=== PATIENT | female | born 1970 | race Caucasian/White ===

== ENCOUNTER 2017-02-04 00:06 | Inpatient (IN) | payer OTHER ==
[2017-02-04] VITALS (7 sets, daily range): BP systolic 107–121; BP diastolic 62–91
[~2017-02-04] VITALS: Ht 152.4 cm; Wt 78.7 kg
--- NOTE | ~2017-02-04 | HC ---
[facility] [place] [address] CONSULTATION Name: JANELLE GARCIA MICHELL Room #: 204-P ADM IN M.R.#: [id number] Admission: 02/04/17 Attend Phys: Gale Tijerina Discharge: Date of : 74 Report #: [id number] THIS REPORT FOR: //name// CC: FAM unknown Gale Tijerina DATE OF SERVICE: 02/04/2017 CARDIOLOGY CONSULTATION HISTORY OF PRESENT ILLNESS: The patient is a 46-year-old white female with a history of a cardiomyopathy who was admitted last night complaining of shortness of breath. The patient has had multiple hospitalizations here at [facility]. She has chronic back pain and has gone to the pain clinic. She has been on chronic narcotics. She previously saw my partner, Dr. Jimmy Jean-Baptiste and was diagnosed with a cardiomyopathy in 2014 when she had an echocardiogram here at [facility]. This showed an ejection fraction of only 20% with a dilated left atrium. She previously had been on carvedilol, lisinopril and Lasix. She states she was actually admitted to [place] in 2016 and underwent a heart catheterization. Apparently, there was no significant coronary artery disease. She was told at that time, she needs a defibrillator, but she refused. Since that time, she lost her insurance and stopped taking all of her medications for the past several weeks. She now notes, however, she regained her Medicaid and Medicare card, but recently she has had increasing edema and shortness of breath. She notes abdominal swelling. Denied any fever or cough. She does note some chest tightness and increased heart rate, but no syncope recently. I was asked to see her for further evaluation and treatment. PAST MEDICAL HISTORY: Otherwise significant for up to 5 back surgeries. She has had multiple surgeries on her knee, hips and shoulder. She has had a cholecystectomy. She went through menopause about 5 years ago. She has a history of hypertension, diabetes and hyperlipidemia. MEDICATIONS: Her previous medications include Coreg, lisinopril, Lasix, Synthroid, Lipitor and oxycodone. ALLERGIES: SHE HAS MULTIPLE INTOLERANCES. FAMILY HISTORY: Positive for heart disease. SOCIAL HISTORY: She is . She does have 3 children. She currently lives with a friend in [place], [place]. No smoking or alcohol abuse. Does smoke marijuana occasionally. She is on disability. 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 REVIEW OF SYSTEMS: She has had no history of peptic ulcer disease or asthma. [facility] [address] [place] [address] CONSULTATION Name: JANELLE GARCIA Room #: 204-P [facility] IN ..#: [id number] Admission: 02/04/17 Attend Phys: Gale Tijerina Discharge: Date of : 74 Report #: [id number] She apparently had a TIA in the past. She had a kidney stone. She had thyroid cancer, received radiation therapy at [place]. No psychiatric illness. PHYSICAL EXAMINATION: GENERAL: Revealed a middle-aged female lying in bed. She appeared in no acute distress. VITAL SIGNS: She had a blood pressure of 110/80, pulse is 80 and she is afebrile. HEENT: She was anicteric. Conjunctivae are pink. Mucous membranes are moist. NECK: Veins do not appear distended. No carotid bruits. CHEST: Clear to auscultation. CARDIAC: Regular rate and rhythm. ABDOMEN: Soft and nontender. EXTREMITIES: Had 1+ edema up to the knee. Dorsalis pedis pulse cannot be palpated. SKIN: Cool and dry. NEUROLOGICAL: Nonfocal. DIAGNOSTIC DATA: Her ECG shows sinus rhythm with poor R-wave progression, nonspecific ST-segment changes. Her workup in the Emergency Room last night, she had a chest x-ray that showed cardiomegaly, atelectasis and no pulmonary edema. Venous duplex scan of the leg done this morning because of the edema showed no evidence of DVT. Previous CT scan of the head without contrast back in 2013 showed no acute abnormality. LABORATORY DATA: Her lab work done last night: Sodium 139, potassium 4.1, BUN was 24, creatinine 1.3 and glucose 134. SGOT 1596, bilirubin 1.1, alkaline phosphatase 211 and SGPT 946. Her troponin was 0.2. Cholesterol 170, triglyceride 124, HDL 55 and LDL 91. BNP 7532. Her INR was 1.9. Her white blood cell count 8.4, hemoglobin 10.5 and MCV 103. IMPRESSION AND RECOMMENDATIONS: 1. Pqrqj-oo-lpghoyp systolic heart failure. Recommend IV Lasix. 2. Cardiomyopathy. I would recommend resuming Coreg, lisinopril, spironolactone and Lasix. 3. Hypertension. The patient is no longer on medications. 4. Hyperlipidemia. The patient is no longer on statin drug. 5. Diabetes. 6. History of thyroid cancer. 7. Elevated liver function studies. Recommend ultrasound. <ELECTRONICALLY SIGNED> By: Koko Arreola MD, FACC 02/05/17 1023 0917 1045 Koko Arreola MD, FACC /nt
--- NOTE | ~2017-02-04 | 2DMMODE ---
[facility] [address] [place] [address] 2 D/M-MODE ECHOCARDIOGRAM Name: JANELLE GARCIA [facility] Room #: 204-P ADM IN M.R.#: [id number] Admission: 02/04/17 Attend Phys: Gale Martinez Discharge: Date of : 74 Date of Service: 02/04/17 0934 Report #: [id number] THIS REPORT FOR: //name// APPROVED REPORT Study performed: 02/04/2017 08:12:22 EXAM: Comprehensive 2D, Doppler, and color-flow Echocardiogram Patient Location: Bedside Room #: 204 Status: routine BSA: 1.74 HR: 76 bpm BP: 114/85 mmHg Rhythm: Irregular Other Information Study Quality: Excellent Indications Heart failure, fluid overload. Hx: Nonischemic cardiomyopathy. CHF 2D Dimensions RVDd: 39.97 mm LVEF(%): 10.38 (>50%) IVSd: 9.44 (7-11mm) LVOT Diam: 20.49 (18-24mm) LVDd: 65.90 mm PWd: 11.36 (7-11mm) Ascending Ao: 33.90 (22-36mm) LVDs: 62.80 (25-40mm) Aortic Root: 29.40 mm Martinez's LVEF: 10.38 % Volumes Left Atrial Volume (Systole) Single Plane 4CH: 78.26 mL Single Plane 2CH: 93.26 mL LA ESV Index: 54.00 mL/m2 Aortic Valve AoV Peak Antwon.: 1.22 m/s AO Peak Gr.: 8.21 mmHg LVOT Max P.74 mmHg LVOT Max V: 0.82 m/s FLORY Vmax: 2.21 cm2 Mitral Valve MV Decel. Time: 126.14 ms [facility] [address] [place] [address] 2 D/M-MODE ECHOCARDIOGRAM Name: [facility] Room #: 204-P [facility] IN M.R.#: [id number] Admission: 02/04/17 Attend Phys: Gale Martinez Discharge: Date of : 74 Date of Service: 02/04/17 0934 Report #: [id number] Max Antwon.: 1.29 m/s Pulmonary Valve PV Peak Antwon.: 0.52 m/s PV Peak Gr.: 1.08 mmHg Pulmonary Vein P Vein S: 0.23 m/s P Vein D: 0.76 m/s P Vein S/D Ratio: 0.30 Tricuspid Valve TR Peak Antwon.: 2.30 m/s RAP Estimate: 5.00 mmHg TR Peak Gr.: 21.00 mmHg PA Pressure: 26.00 mmHg Left Ventricle Left ventricle is moderately dilated. There is global hypokinesis of the left ventricle. There is normal left ventricular wall thickness. Left ventricular systolic function is severely decreased. LVEF is 15-20%. This study is not technically sufficient to allow evaluation of the LV diastolic function. Right Ventricle The right ventricle is normal size. Right ventricle is moderate to severely hypokinetic. Atria Left atrium is severely dilated. Right atrium is mildly dilated. Aortic Valve Aortic valve is mildly calcified. Trace aortic regurgitation. There is no aortic valvular stenosis. Mitral Valve Mitral valve leaflets are mildly thickened. Mild mitral annular calcification. Moderate mitral regurgitation. Tricuspid Valve The tricuspid valve is normal in structure. Mild tricuspid regurgitation. Estimated PAP is 26mmHg. Pulmonic Valve The pulmonary valve is normal in structure. Mild pulmonic regurgitation. [facility] [address] [place] [address] 2 D/M-MODE ECHOCARDIOGRAM Name: JANELLE GARCIA MICHELL Room #: 204-P [facility] IN M.R.#: [id number] Admission: 02/04/17 Attend Phys: Gale Martinez Discharge: Date of : 74 Date of Service: 02/04/17 0934 Report #: [id number] Great Vessels The aortic root is normal in size. The ascending aorta is normal in size. IVC is normal in size and collapses >50% with inspiration. Pericardium There is no pericardial effusion. <Conclusion> LVEF is 15-20%. There is global hypokinesis of the left ventricle. Left ventricle is moderately dilated. Left atrium is severely dilated. Moderate mitral regurgitation. Mild tricuspid regurgitation. Estimated PAP is 26mmHg. <ELECTRONICALLY SIGNED> By: Koko Arreola MD, FACC 02/04/17933 3 3 Koko Arreola MD, FACC /INF
--- NOTE | ~2017-02-04 | EKG ---
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 : 1970 Requested By: Jadon Roche Order Number: [id number] MD: Alexis Torres Measurements Intervals [place] Rate: 80 P: 56 WI: 145 QRS: 18 QRSD: 119 T: 23 QT: 451 QTc: 521 Interpretive Statements Sinus rhythm Atrial premature complexes Anterior infarct, old Prolonged QT interval Compared to ECG 05/08/2015 21:28:27 Atrial premature complex(es) now present Electronically Signed On 02-04-2017 8:38:45 CDT by Alexis Torres [email or web address] <ELECTRONICALLY SIGNED> By: Alexis Torres MD, [facility] 02/04/17 0838 0020 0020 Alexis Torres MD, [facility] /EPI
[~2017-02-04 00:06] MED LIST: AMBIEN 5 MG TABL5 M1; AMLODIPINE PO; BACTRIM DS TAB1 EACH; CALCITRIOL PO; CALCIUM 600 +1 EAC1 PO; CARAFATE1 GM/10 ML; CATAPRES; CATAPRES PO; CATAPRES TD; CLARITIN10 MG PO; COREG CR20 MG PO; COREG3.125 MG PO; DIOVAN; DYAZIDE 37.5-21 EACH PO; HYDROCODONE-AP1 EAC6 PO; KLOR-CON 1010 MEQ PO; LASIX 20 MG TAB20 MG PO; LASIX 40 MG TAB40 M2 PO; LEVAQUIN 500 M500 M6 PO; LEVOTHYROXINE 0.1 MG PO; LEVOXYL200 MCG PO; LEVOXYL300 MCG; LEVOXYL75 MCG PO; LISINOPRIL10 MG PO; LISINOPRIL20 MG PO; LUNESTA1 MG PO; MACROBID 100 M100 M1 PO; MARINOL 2.5 MG2.5 M1 PO; MARINOL2.5 MG PO; NORCO 5-325 TA1 EACH PO; NORFLEX100 MG PO; OXYCODONE HCL 55 MG PO; OXYCODONE HCL E10 MG PO; OXYCODONE HCL10 MG PO; OXYCODONE HCL15 MG PO; OXYCODONE HCL5 M1 PO; OXYCONTIN CR 2020 MG PO; OXYCONTIN10 M1 PO; OXYCONTIN20 M1 PO; OXYCONTIN20 MG PO; OXYCONTIN60 MG PO; PERCOCET 10-321 EACH; PERCOCET 10-651 EACH PO; PERCOCET 5-3251 EACH PO; PRINIVIL20 MG PO; ROXICODONE15 M1 PO; ROXICODONE5 M2 PO; TOBRAMYCIN SULFA5 ML OP; VALIUM5 MG PO; ZANTAC150 M2 PO; ZOCOR20 MG PO
[2017-02-04] MEDS ORDERED: ROXICODONE5 MG PO (00:26)
[2017-02-04 00:41] LABS: HEMATOCRIT 31.7 % (37.0-47.0); HEMOGLOBIN 10.5 gm/dL (12.0-15.0); MCH 34.2 pg (26.0-34.0); MCV 103.4 fL (80.0-100.0); PLATELET COUNT 160 thou/uL (150-400); RBC 3.06 mil/uL (4.20-5.00); RDW 16.8 % (10.5-14.5); WBC 8.4 thou/uL (4.0-11.0)
[2017-02-04 00:44] LABS: MANUAL DIFF YES
[2017-02-04 00:49] LABS: CALCIUM 7.9 mg/dL (8.5-10.1); CREATININE 1.3 mg/dL (0.6-1.0); POTASSIUM 4.1 mmol/L (3.5-5.1)
[2017-02-04 00:54] LABS: APTT 29.9 Seconds (24.5-32.8); INR 1.9; PROTIME 19.5 Seconds (9.3-11.4)
[2017-02-04 01:03] LABS: ALBUMIN 3.6 g/dL (3.4-5.0); TOTAL BILIRUBIN 1.1 mg/dL (<0.1-1.0); TOTAL PROTEIN 7.1 g/dL (6.4-8.2); TROPONIN-I 0.22 ng/mL (<0.04-0.07)
[2017-02-04 01:07] LABS: URINE BILIRUBIN NEGATIVE (Negative); URINE BLOOD TRACE (Negative); URINE COLOR YELLOW; URINE GLUCOSE-RANDOM* NEGATIVE (Negative); URINE KETONES NEGATIVE (Negative); URINE LEUKOCYTES-REFLEX NEGATIVE (Negative); URINE PROTEIN (DIPSTICK) 2+ (Negative); URINE SPECIFIC GRAVITY >= 1.030 (1.003-1.035); URINE UROBILINOGEN 0.2 E.U./dl (0.2-1.0)
[2017-02-04 01:16] LABS: AMORPHOUS URATES Moderate /LPF (None Seen); CASTS None Seen /LPF (None Seen); CRYSTALS None Seen /LPF (None Seen); SQUAMOUS None Seen /LPF (0-3); URINE RBC 0-2 Rare /HPF (0-2); URINE WBC-REFLEX 0-5 Rare /HPF (0-5)
[2017-02-04 01:21] LABS: ABSOLUTE NEUTROPHILS 7.5 thou/uL (1.4-8.2); ANISOCYTOSIS 1+; LARGE PLATELETS FEW; MACROCYTES 1+; NUCLEATED RBCS 1 /100WBC; POLYCHROMASIA 1+; TOTAL CELL COUNT 100
[2017-02-04 07:42] LABS: CHOLESTEROL 170 mg/dL (<200); HDL CHOLESTEROL 55 mg/dL (>40); LDL CHOLESTEROL 91 mg/dL (<100); TC:HDL 3.1 Ratio (Not establshd); TRIGLYCERIDE 124 mg/dL (<150); VLDL 25 mg/dL (<40)
[2017-02-04 15:12] LABS: HEPATITIS C VIRUS AB <0.1 (0.0-0.9)
[2017-02-04 21:11] LABS: GLYCOHEMOGLOBIN (HGB A1C) 5.9 % (4.8-5.6)
[2017-02-05 03:13] VITALS: BP 110/75
[2017-02-05 04:02] LABS: HEMOGLOBIN 11.1 gm/dL (12.0-15.0); MCHC 33.6 g/dL (28.0-37.0); MCV 101.4 fL (80.0-100.0); RBC 3.25 mil/uL (4.20-5.00); RDW 16.3 % (10.5-14.5); WBC 6.3 thou/uL (4.0-11.0)
[2017-02-05 04:18] LABS: ALBUMIN 3.2 g/dL (3.4-5.0); CALCIUM 7.5 mg/dL (8.5-10.1); CREATININE 1.3 mg/dL (0.6-1.0); PHOSPHORUS 3.5 mg/dL (2.5-4.9); POTASSIUM 3.3 mmol/L (3.5-5.1)
[2017-02-05 04:26] LABS: ALBUMIN 3.1 g/dL (3.4-5.0); CALCIUM 7.5 mg/dL (8.5-10.1); CREATININE 1.3 mg/dL (0.6-1.0); MAGNESIUM 1.9 mg/dL (1.8-2.4); POTASSIUM 3.2 mmol/L (3.5-5.1); TOTAL BILIRUBIN 0.6 mg/dL (<0.1-1.0); TOTAL PROTEIN 7.2 g/dL (6.4-8.2)
[2017-02-05 07:13] VITALS: BP 105/78
[2017-02-05 10:58] VITALS: BP 115/76
[2017-02-05 15:06] VITALS: BP 99/63
[2017-02-06 03:17] VITALS: BP 96/77
[2017-02-06 03:27] LABS: INR 1.2; PROTIME 12.3 Seconds (9.3-11.4)
[2017-02-06 03:45] LABS: ALBUMIN 2.9 g/dL (3.4-5.0); CALCIUM 7.2 mg/dL (8.5-10.1); CREATININE 1.5 mg/dL (0.6-1.0); PHOSPHORUS 4.2 mg/dL (2.5-4.9); POTASSIUM 4.2 mmol/L (3.5-5.1)
[2017-02-06 07:06] VITALS: BP 94/64
[2017-02-06] MEDS ORDERED: CARVEDILOL3.125 MG PO (07:54)
[2017-02-06] MEDS ORDERED: ALDACTONE25 MG PO (07:55)
[2017-02-06] MEDS ORDERED: SYNTHROID75 MCG PO (07:55)
[2017-02-06] MEDS ORDERED: LISINOPRIL5 MG PO (07:55)
[2017-02-06] MEDS ORDERED: LASIX 40 MG TAB40 M2 PO (07:59)
[2017-02-06 10:58] VITALS: BP 102/78
[2017-02-06 15:12] VITALS: BP 100/70
[2017-02-06 19:44] VITALS: BP 104/74
[2017-02-07 04:05] VITALS: BP 97/74
[2017-02-07 08:00] VITALS: BP 93/59
[2017-02-07 10:25] VITALS: BP 93/59
[2017-02-07 10:53] VITALS: BP 93/59
[2017-02-07 12:00] VITALS: BP 116/83
== END 2017-02-07 15:30 | disposition home or self-care (01) | DRG 280 ==
LOC: ER 00:06 → 2N 01:48 → EROBS 01:48 → 2N 02:32 → ENTRNSPT 02-07 15:17 → EDTRNSPTSTS 02-07 15:20 → 2N 02-07 15:30
PROVIDERS: Emergency Medicine; Hospitalist; Internal Medicine Cardiovascular Disease; Nurse Practitioner Acute Care
DX: I21.4 Non-ST elevation (NSTEMI) myocardial infarction (principal); I50.43 Acute on chronic combined systolic (congestive) and diastolic (congestive) heart failure; I42.9 Cardiomyopathy, unspecified; M62.82 Rhabdomyolysis; E89.0 Postprocedural hypothyroidism; E78.5 Hyperlipidemia, unspecified; R74.0 Nonspecific elevation of levels of transaminase and lactic acid dehydrogenase [LDH]; N18.3 Chronic kidney disease, stage 3 (moderate); G89.29 Other chronic pain; M54.9 Dorsalgia, unspecified; K76.1 Chronic passive congestion of liver; E11.22 Type 2 diabetes mellitus with diabetic chronic kidney disease; Z96.642 Presence of left artificial hip joint; Z85.850 Personal history of malignant neoplasm of thyroid; Z90.49 Acquired absence of other specified parts of digestive tract; Z28.21 Immunization not carried out because of patient refusal; Z91.14 Patient's other noncompliance with medication regimen; Z79.899 Other long term (current) drug therapy; Z88.6 Allergy status to analgesic agent; Z88.1 Allergy status to other antibiotic agents; Z88.5 Allergy status to narcotic agent; Z88.0 Allergy status to penicillin; Z88.8 Allergy status to other drugs, medicaments and biological substances; Z91.018 Allergy to other foods; Z82.49 Family history of ischemic heart disease and other diseases of the circulatory system; Z80.8 Family history of malignant neoplasm of other organs or systems
CPT/HCPCS: 10081

== ENCOUNTER 2017-04-23 04:33 | Inpatient (IN) | payer OTHER ==
[~2017-04-23] VITALS: Ht 165.1 cm; Wt 73.4 kg
--- NOTE | ~2017-04-23 | HC ---
[facility] [place] [address] CONSULTATION Name: JANELLE GARCIA MICHELL Room #: 207-P ADM IN M.R.#: [id number] Admission: 04/23/17 Attend Phys: Juan Lee DO Discharge: Date of : 74 Report #: [id number] THIS REPORT FOR: //name// CC: JOSE Lee DATE OF SERVICE: 04/23/2017 CHIEF COMPLAINT: Shortness of breath. HISTORY OF PRESENT ILLNESS: The patient is a 46-year-old female with a nonischemic cardiomyopathy and severe left ventricular dysfunction in the less than 25% range, presented with increasing shortness of breath that started last night. She denies chest pain or pressure. She thinks she has gained about more than 5 pounds in the last 48-72 hours. She is without cough or fevers. She reports compliance with her medications. PAST MEDICAL HISTORY: Severe left ventricular dysfunction, ejection fraction of 20% on 02/04/2017 echocardiogram, moderate mitral regurgitation, PA pressure 26 mmHg. She has history of chronic back pain, chronic kidney disease, elevated liver function tests, hypothyroidism, mild chronic renal insufficiency and narcotic abuse. MEDICATIONS: Coreg 3.125 mg p.o. b.i.d., lisinopril 2.5 mg daily, Aldactone 25 mg daily, oxycodone p.r.n., Lasix 40 mg daily and Synthroid 75 mcg daily. ALLERGIES: ASPIRIN, STADOL, KEFLEX, BENTYL, FENTANYL, KETOROLAC, NIFEDIPINE, PENICILLIN, CIPRO, COMPAZINE, HYDROMORPHONE, MORPHINE, CEPHALOSPORINS, IBUPROFEN, REGLAN, ONDANSETRON, PINEAPPLES, PORK, PROCAINE. PAST SURGICAL HISTORY: Prior radical neck dissection, thyroid cancer, hip replacement, appendectomy, cholecystectomy, BTL, lithotripsy. SOCIAL HISTORY: Tobacco use, she is a nonsmoker. She uses recreational drugs. REVIEW OF SYSTEMS: GENERAL: No fevers or chills. PULMONARY: No shortness of breath or productive cough. CARDIOVASCULAR: No chest pain. Positive dyspnea, positive orthopnea, positive edema. GASTROINTESTINAL: No abdominal pain, nausea, vomiting. GENITOURINARY: No dysuria or hematuria. [facility] [address] [place] [address] CONSULTATION Name: JANELLE GARCIA MICHELL Room #: 207-P [facility] IN M.R.#: [id number] Admission: 04/23/17 Attend Phys: Juan Lee DO Discharge: Date of : 74 Report #: [id number] SKIN: No rashes. NEUROLOGIC: Denies headaches or seizures. ENDOCRINE: Positive prediabetes. No active diabetes. ALLERGIES: No seasonal or contrast allergies. Positive medical allergies, see above. PHYSICAL EXAMINATION: VITAL SIGNS: Blood pressure is 137/102, pulse is 78, respiratory rate 18, O2 sats 95% on 2 liters, and her weight is 72 kg. GENERAL: This is a mildly obese adult female. She is alert, no apparent distress. NECK: Supple. No jugular venous distention. She is sitting up in chair. CARDIOVASCULAR: Regular. I cannot hear a murmur or S3. LUNGS: Diminished breath sounds. ABDOMEN: Nontender. EXTREMITIES: There is just some minimal amount of edema. SKIN: Warm and dry. LABORATORY DATA: Electrocardiogram demonstrates sinus rhythm, LVH. Hemoglobin is 10.9, white blood count 5.1, platelet count 148,000. Sodium is 138, potassium 3.3, chloride 103, CO2 is 28, BUN is 18, creatinine is 1.4. Troponin I is 0.09. NT-proBNP is 13,083. It was 12,000 in March when she was in the hospital. IMAGING: Chest x-ray reveals cardiomegaly, minor atelectasis or scarring. IMPRESSION: 1. Pjktd-zp-etyaiqu systolic dysfunction. She has severe left ventricular dysfunction. I would like to continue with the current medical therapies and diuretics IV. She has been previously evaluated for Bi-V implantable cardioverter-defibrillator and initially was not felt to be a good candidate. 2. Hypertension, stable. 3. Narcotic abuse. We will need to monitor for withdrawal. <ELECTRONICALLY SIGNED> By: Magnus Guallpa MD, FACC 04/24/17 0858 0917 1048 Magnus Guallpa MD, FACC /nt
--- NOTE | ~2017-04-23 | EKG ---
[address] [employer] [place] [address] ELECTROCARDIOGRAM REPORT Name: GARCIAJANELLE MICHELL Room #: 207-P ADM IN M.R.#: [id number] Admission: 04/23/17 Attend Phys: Juan Lee DO Discharge: Date of : 74 Report #: [id number] THIS REPORT FOR: //name// [facility] ED Test Date: 2017-04-23 Test Time: 04:46:07 Pat Name: JANELLE GARCIA Department: Room: 207 Gender: F Disability Liaison Officer: john : 1970 Requested By: Mauro Treviño Order Number: [id number] MD: Alexis Torres Measurements Intervals [place] Rate: 79 P: 17 MN: 149 QRS: 7 QRSD: 114 T: 120 QT: 458 QTc: 526 Interpretive Statements Sinus rhythm Atrial premature complexes LVH with secondary repolarization abnormality Anterior infarct, old Prolonged QT interval Baseline wander in lead(s) V2 Compared to ECG 03/19/2017 13:38:47 No significant change was found Electronically Signed On 04-24-2017 7:35:41 SALES OFFICE COORDINATOR by Alexis Torres [email or web address] <ELECTRONICALLY SIGNED> By: Alexis Torres MD, [facility] 04/24/17 0735 0446 0446 Alexis Torres MD, [facility] /EPI
[~2017-04-23 04:33] MED LIST changes: +ALDACTONE25 MG PO; +CARVEDILOL3.125 MG PO; +LISINOPRIL5 MG PO; +ROXICODONE5 MG PO; +SYNTHROID75 MCG PO
[2017-04-23 05:03] LABS: ABSOLUTE NEUTROPHILS 3.8 thou/uL (1.4-8.2); BASOPHILS 1.2 % (0.0-2.0); EOSINOPHILS 0.9 % (0.0-3.0); HEMATOCRIT 32.6 % (37.0-47.0); HEMOGLOBIN 10.9 gm/dL (12.0-15.0); LYMPHOCYTES 19.3 % (24.0-44.0); MCH 31.1 pg (26.0-34.0); MCHC 33.3 g/dL (28.0-37.0); MCV 93.3 fL (80.0-100.0); PLATELET COUNT 148 thou/uL (150-400); POLYS 74.6 % (36.0-66.0); RDW 17.1 % (10.5-14.5); WBC 5.1 thou/uL (4.0-11.0)
[2017-04-23 05:05] LABS: CALCIUM 7.5 mg/dL (8.5-10.1); CREATININE 1.4 mg/dL (0.6-1.0); MANUAL DIFF NO; POTASSIUM 3.3 mmol/L (3.5-5.1)
[2017-04-23 05:12] LABS: URINE BILIRUBIN NEGATIVE (Negative); URINE BLOOD NEGATIVE (Negative); URINE COLOR YELLOW; URINE GLUCOSE-RANDOM* NEGATIVE (Negative); URINE KETONES NEGATIVE (Negative); URINE LEUKOCYTES-REFLEX NEGATIVE (Negative); URINE PROTEIN (DIPSTICK) NEGATIVE (Negative); URINE UROBILINOGEN 0.2 E.U./dl (0.2-1.0)
[2017-04-23 05:14] LABS: TROPONIN-I 0.09 ng/mL (<0.06)
[2017-04-23 05:20] LABS: AMP/METHAMP Negative (Negative); BARBITURATES Negative (Negative); BENZODIAZEPINES Negative (Negative); COCAINE Negative (Negative); METHADONE Negative (Negative); OPIATES POSITIVE (Negative); PCP Negative (Negative)
[2017-04-23 09:36] VITALS: BP 123/77
[2017-04-23 11:20] VITALS: BP 129/90
[2017-04-23 15:12] VITALS: BP 147/91
[2017-04-23 19:41] VITALS: BP 120/83
[2017-04-23 23:46] VITALS: BP 132/77
[2017-04-24 03:23] VITALS: BP 123/87
[2017-04-24 06:57] LABS: ABSOLUTE NEUTROPHILS 5.3 thou/uL (1.4-8.2); BASOPHILS 0.7 % (0.0-2.0); EOSINOPHILS 2.8 % (0.0-3.0); HEMATOCRIT 29.1 % (37.0-47.0); LYMPHOCYTES 14.3 % (24.0-44.0); MCHC 34.3 g/dL (28.0-37.0); MCV 93.3 fL (80.0-100.0); MONOCYTES 5.9 % (1.0-8.0); PLATELET COUNT 128 thou/uL (150-400); POLYS 76.3 % (36.0-66.0); RBC 3.12 mil/uL (4.20-5.00)
[2017-04-24 07:02] LABS: MANUAL DIFF NO
[2017-04-24 07:06] LABS: CALCIUM 7.4 mg/dL (8.5-10.1); CREATININE 1.5 mg/dL (0.6-1.0); MAGNESIUM 1.8 mg/dL (1.8-2.4); POTASSIUM 3.8 mmol/L (3.5-5.1)
[2017-04-24 07:50] VITALS: BP 118/90
[2017-04-24 11:50] VITALS: BP 1150/77
[2017-04-24 15:45] VITALS: BP 115/76
[2017-04-24 19:51] VITALS: BP 94/69
[2017-04-25 03:31] VITALS: BP 111/77
[2017-04-25 08:28] VITALS: BP 95/44
[2017-04-25 10:51] LABS: ABSOLUTE NEUTROPHILS 4.4 thou/uL (1.4-8.2); BASOPHILS 0.9 % (0.0-2.0); EOSINOPHILS 5.2 % (0.0-3.0); HEMATOCRIT 34.5 % (37.0-47.0); HEMOGLOBIN 11.5 gm/dL (12.0-15.0); LYMPHOCYTES 15.3 % (24.0-44.0); MCH 31.5 pg (26.0-34.0); MCHC 33.5 g/dL (28.0-37.0); MCV 94.1 fL (80.0-100.0); MONOCYTES 7.7 % (1.0-8.0); PLATELET COUNT 159 thou/uL (150-400); POLYS 70.9 % (36.0-66.0); RBC 3.66 mil/uL (4.20-5.00); WBC 6.2 thou/uL (4.0-11.0)
[2017-04-25 10:54] LABS: MANUAL DIFF NO
[2017-04-25 11:04] LABS: CALCIUM 7.5 mg/dL (8.5-10.1); CREATININE 1.3 mg/dL (0.6-1.0)
[2017-04-25 12:17] VITALS: BP 94/67
[2017-04-25 15:24] VITALS: BP 94/67
[2017-04-25 15:35] VITALS: BP 103/64
== END 2017-04-25 17:34 | disposition home or self-care (01) | DRG 280 ==
LOC: ER 04:33 → 2N 05:39 → EROBS 05:39 → 2N 09:01 → ENTRNSPT 04-25 17:24 → 2N 04-25 17:34
PROVIDERS: Emergency Medicine; Family Medicine; Nurse Practitioner
DX: I21.4 Non-ST elevation (NSTEMI) myocardial infarction (principal); I50.23 Acute on chronic systolic (congestive) heart failure; K50.90 Crohn's disease, unspecified, without complications; I42.9 Cardiomyopathy, unspecified; I13.0 Hypertensive heart and chronic kidney disease with heart failure and stage 1 through stage 4 chronic kidney disease, or unspecified chronic kidney disease; N17.9 Acute kidney failure, unspecified; F11.20 Opioid dependence, uncomplicated; E89.0 Postprocedural hypothyroidism; G89.29 Other chronic pain; Z96.641 Presence of right artificial hip joint; N18.3 Chronic kidney disease, stage 3 (moderate); I34.0 Nonrheumatic mitral (valve) insufficiency; E87.6 Hypokalemia; M54.5 Low back pain; E83.51 Hypocalcemia; R73.03 Prediabetes; I95.9 Hypotension, unspecified; Z82.49 Family history of ischemic heart disease and other diseases of the circulatory system; Z91.018 Allergy to other foods; Z88.0 Allergy status to penicillin; Z80.8 Family history of malignant neoplasm of other organs or systems; Z88.8 Allergy status to other drugs, medicaments and biological substances; Z88.6 Allergy status to analgesic agent; Z79.899 Other long term (current) drug therapy; Z91.14 Patient's other noncompliance with medication regimen; Z90.49 Acquired absence of other specified parts of digestive tract; Z85.850 Personal history of malignant neoplasm of thyroid
CPT/HCPCS: 10081

== ENCOUNTER 2017-08-08 13:01 | Inpatient (IN) | payer OTHER ==
[~2017-08-08] VITALS: Ht 165.1 cm; Wt 83.9 kg
--- NOTE | ~2017-08-08 | EKG ---
[place] [address] [email or web address] [place] [address] ELECTROCARDIOGRAM REPORT Name: JOSEJANELLELAURA GALARZA [facility] [id number] Admission: 08/08/17 Attend Phys: Discharge: Date of : 74 Report #: [id number] THIS REPORT FOR: //name// [facility] ED Test Date: 2017-08-08 Test Time: 13:08:29 Pat Name: JANELLE GARCIA Department: Room: Gender: F Language Tutor: CARLOS : 1970 Requested By: Anisha Alejandra Order Number: [id number] MD: Macario Wood Measurements Intervals [place] Rate: 71 P: 24 MA: 154 QRS: -8 QRSD: 118 T: 92 QT: 464 QTc: 505 Interpretive Statements Sinus rhythm Nonspecific intraventricular conduction delay Inferior infarct, old Anterior infarct, old Electronically Signed On 08-08-2017 14:02:44 CDT by Macario Wood [email or web address] <ELECTRONICALLY SIGNED> By: Macario Wood MD 08/08/17 1402 1308 1308 MD FLORY Carvajal
--- NOTE | ~2017-08-08 | HC ---
[facility] [place] [address] CONSULTATION Name: JANELLE GARCIA MICHELL Room #: 419-P ADM IN M.R.#: [id number] Admission: 08/08/17 Attend Phys: Juan Lee DO Discharge: Date of : 74 Report #: [id number] THIS REPORT FOR: //name// CC: JOSE Lee DATE OF SERVICE: 08/09/2017 CHIEF COMPLAINT: Shortness of breath, cough. HISTORY OF PRESENT ILLNESS: The patient is a 47-year-old female with a nonischemic cardiomyopathy, who presents with several days of increasing shortness of breath and cough. She has been seen in our practice in the hospital for congestive heart failure, severe LV dysfunction. She has never followed up with our office after she is discharged from the hospital. When asked this, the patient reports that she had bad weather and was unable to make rescheduled appointments. She admits she is noncompliant also with the medication she was discharged with. She denies chest pain or pressure. Her BNP actually is a bit lower than previous hospitalizations and her chest x-ray looked more compatible with pneumonia, so she is on IV antibiotic therapy. She denies palpitations, syncope, or presyncope. PAST MEDICAL HISTORY: Nonischemic cardiomyopathy, severe LV dysfunction. She has a history of substance abuse, moderate mitral regurgitation, elevated LFTs, hypothyroidism, chronic kidney disease. HOME MEDICATIONS: Include carvedilol 3.125 mg p.o. b.i.d., lisinopril 2.5 mg daily, Aldactone 25 mg daily, Lasix 40 mg daily, Synthroid 75 mcg daily. ALLERGIES: She has numerous allergies, which have been reviewed by myself. PAST SURGICAL HISTORY: She has prior neck surgery, thyroid surgery, appendectomy, cholecystectomy. SOCIAL HISTORY: Tobacco use, previously recreational drug use is also noted in her history. REVIEW OF SYSTEMS: GENERAL: No fevers. CARDIOVASCULAR: Positive dyspnea with exertion, no chest pain. Positive orthopnea, positive PND, positive edema. NEUROLOGIC: No syncope. No seizures. [facility] [address] [place] [address] CONSULTATION Name: JANELLE GARCIA [facility] Room #: 419-P [facility] IN M.R.#: [id number] Admission: 08/08/17 Attend Phys: Juan Lee DO Discharge: Date of : 74 Report #: [id number] GASTROINTESTINAL: No anemia, abdominal pain, positive bloating. GENITOURINARY: No dysuria or hematuria. HEMATOLOGIC: No anemia. RENAL: No history of kidney failure. THROAT: Denies any dysphagia. SKIN: No rashes. PHYSICAL EXAMINATION: VITAL SIGNS: Heart rate is 73. She is in a sinus rhythm with an IVCD. Blood pressure is 133/94. GENERAL: This patient is alert, oriented, sitting on the edge of the bed. HEENT: Eyes: EOMs are intact. No facial asymmetry. NECK: Supple. No jugular venous distention. CARDIOVASCULAR: Regular. There is positive S3. I could not hear a murmur. LUNGS: Diminished breath sounds bilaterally. ABDOMEN: Soft, nontender, nondistended. EXTREMITIES: No peripheral edema. SKIN: Warm and dry. PSYCHIATRIC: The patient has appropriate mood and affect. Electrocardiogram shows sinus rhythm, IVCD. LABORATORY DATA: Chest x-ray shows a cardiomegaly with possible pulmonary venous engorgement, nonconsolidative infiltrate, small bilateral pleural effusions. Hemoglobin 10.5, white blood cell count is 5.1, platelet count is 131,000. Sodium is 139, potassium is 3.3, chloride is 100, CO2 is 30, BUN is 24, creatinine is 1.5, glucose is 108. Hemoglobin is 10.5. ASSESSMENT AND PLAN: 1. Acute congestive heart failure. This actually seems fairly mild and clinically compared to previous hospitalizations. I would continue with her home oral medications, which she has been noncompliant with. I do not see the need for aggressive IV diuresis at this point. 2. Nonischemic cardiomyopathy. She had been previously evaluated for a Bi-V ICD, but because of compliance issues in particular with substance abuse, she was not felt to be a good candidate. We discussed the importance of following up with our office for outpatient care to prevent rehospitalization and the patient reported that she is going to try to be more compliant. 3. Noncompliance. She reports she had not been taking most of her medications. 4. Pneumonia. She is on IV antibiotics. By: 0914 1128 Magnus Guallpa MD, FACC /nt
[2017-08-08 13:36] VITALS: BP 131/99
[2017-08-08] MEDS ORDERED: ATIVAN0.5 MG PO (13:47)
[2017-08-08 14:42] LABS: ABSOLUTE NEUTROPHILS 3.4 thou/uL (1.4-8.2); BASOPHILS 1.1 % (0.0-2.0); EOSINOPHILS 0.8 % (0.0-3.0); HEMATOCRIT 32.6 % (37.0-47.0); HEMOGLOBIN 10.7 gm/dL (12.0-15.0); LYMPHOCYTES 15.3 % (24.0-44.0); MCHC 32.8 g/dL (28.0-37.0); MCV 94.3 fL (80.0-100.0); MONOCYTES 4.7 % (1.0-8.0); PLATELET COUNT 125 thou/uL (150-400); POLYS 78.1 % (36.0-66.0); RBC 3.46 mil/uL (4.20-5.00); RDW 21.4 % (10.5-14.5); WBC 4.4 thou/uL (4.0-11.0)
[2017-08-08 14:56] LABS: INR 1.4; PROTIME 14.7 Seconds (9.3-11.4)
[2017-08-08 15:01] LABS: ANISOCYTOSIS 2+; PLATELET ESTIMATE DECREASED
[2017-08-08 15:02] LABS: MACROCYTES 1+; MICROCYTES 1+
[2017-08-08 15:03] LABS: HYPOCHROMASIA SLIGHT; POIKILOCYTOSIS SLIGHT; POLYCHROMASIA OCCASIONAL; TARGET CELLS OCCASIONAL
[2017-08-08 15:07] LABS: CALCIUM 7.5 mg/dL (8.5-10.1); CREATININE 1.5 mg/dL (0.6-1.0); POTASSIUM 4.3 mmol/L (3.5-5.1)
[2017-08-08 15:14] LABS: ALBUMIN 3.3 g/dL (3.4-5.0); TOTAL BILIRUBIN 0.6 mg/dL (<0.1-1.0); TOTAL PROTEIN 7.2 g/dL (6.4-8.2); TROPONIN-I 0.04 ng/mL (<0.06)
[2017-08-08 17:03] VITALS: BP 131/99
[2017-08-08 19:02] VITALS: BP 131/99
[2017-08-08 19:15] VITALS: BP 148/95
[2017-08-09 03:37] VITALS: BP 133/94
[2017-08-09 07:04] LABS: ABSOLUTE NEUTROPHILS 4.1 thou/uL (1.4-8.2); BASOPHILS 0.8 % (0.0-2.0); EOSINOPHILS 0.9 % (0.0-3.0); HEMATOCRIT 31.5 % (37.0-47.0); HEMOGLOBIN 10.5 gm/dL (12.0-15.0); LYMPHOCYTES 14.2 % (24.0-44.0); MCH 31.4 pg (26.0-34.0); MCHC 33.5 g/dL (28.0-37.0); MCV 93.7 fL (80.0-100.0); PLATELET COUNT 131 thou/uL (150-400); POLYS 81.1 % (36.0-66.0); RBC 3.36 mil/uL (4.20-5.00); RDW 21.4 % (10.5-14.5); WBC 5.1 thou/uL (4.0-11.0)
[2017-08-09 07:16] VITALS: BP 136/94
[2017-08-09 07:21] LABS: CALCIUM 7.2 mg/dL (8.5-10.1); CREATININE 1.5 mg/dL (0.6-1.0); MAGNESIUM 1.9 mg/dL (1.8-2.4); POTASSIUM 3.3 mmol/L (3.5-5.1)
[2017-08-09 15:24] VITALS: BP 106/68
[2017-08-09 15:33] VITALS: BP 128/60
[2017-08-09 20:14] VITALS: BP 110/73
[2017-08-10 05:27] VITALS: BP 113/81
[2017-08-10 07:36] VITALS: BP 105/73
[2017-08-10 09:01] LABS: ABSOLUTE NEUTROPHILS 5.7 thou/uL (1.4-8.2); HEMATOCRIT 34.6 % (37.0-47.0); HEMOGLOBIN 11.7 gm/dL (12.0-15.0); LYMPHOCYTES 9.5 % (24.0-44.0); MCH 31.6 pg (26.0-34.0); MCHC 33.8 g/dL (28.0-37.0); MCV 93.6 fL (80.0-100.0); MONOCYTES 4.8 % (1.0-8.0); PLATELET COUNT 132 thou/uL (150-400); POLYS 82.7 % (36.0-66.0); RDW 21.1 % (10.5-14.5); WBC 6.9 thou/uL (4.0-11.0)
[2017-08-10 09:10] LABS: CALCIUM 7.3 mg/dL (8.5-10.1); CREATININE 1.5 mg/dL (0.6-1.0)
[2017-08-10 16:33] VITALS: BP 91/57
[2017-08-10 19:21] VITALS: BP 99/63
[2017-08-11] VITALS (9 sets, daily range): BP systolic 106–109; BP diastolic 63–75
== END 2017-08-11 18:00 | disposition home health service (06) | DRG 177 ==
LOC: ER 13:01 → EROBS 16:26 → 4E 16:26
PROVIDERS: Family Medicine; Nurse Practitioner; Physician Assistant
DX: J15.6 Pneumonia due to other Gram-negative bacteria (principal); I50.23 Acute on chronic systolic (congestive) heart failure; I13.0 Hypertensive heart and chronic kidney disease with heart failure and stage 1 through stage 4 chronic kidney disease, or unspecified chronic kidney disease; N17.9 Acute kidney failure, unspecified; M87.821 Other osteonecrosis, right humerus; J44.0 Chronic obstructive pulmonary disease with (acute) lower respiratory infection; I42.9 Cardiomyopathy, unspecified; N18.3 Chronic kidney disease, stage 3 (moderate); R73.03 Prediabetes; G89.29 Other chronic pain; M54.9 Dorsalgia, unspecified; F19.10 Other psychoactive substance abuse, uncomplicated; Z71.51 Drug abuse counseling and surveillance of drug abuser; E83.51 Hypocalcemia; Z96.642 Presence of left artificial hip joint; E89.0 Postprocedural hypothyroidism; T38.0X5A Adverse effect of glucocorticoids and synthetic analogues, initial encounter; Y92.89 Other specified places as the place of occurrence of the external cause; Z85.850 Personal history of malignant neoplasm of thyroid; Z90.49 Acquired absence of other specified parts of digestive tract; Z91.14 Patient's other noncompliance with medication regimen; Z79.899 Other long term (current) drug therapy; Z88.6 Allergy status to analgesic agent; Z88.1 Allergy status to other antibiotic agents; Z88.5 Allergy status to narcotic agent; Z88.0 Allergy status to penicillin; Z88.8 Allergy status to other drugs, medicaments and biological substances; Z91.018 Allergy to other foods; Z82.49 Family history of ischemic heart disease and other diseases of the circulatory system; Z80.8 Family history of malignant neoplasm of other organs or systems
CPT/HCPCS: 10183

== ENCOUNTER 2017-09-08 14:28 | Emergency (ER) | payer OTHER ==
[~2017-09-08] VITALS: Ht 165.1 cm; Wt 83.0 kg
--- NOTE | ~2017-09-08 | EKG ---
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 : 1970 Requested By: Mauro Treviño Order Number: [id number] MD: Alexis Torres Measurements Intervals [place] Rate: 73 P: 41 OK: 132 QRS: 32 QRSD: 112 T: 51 QT: 463 QTc: 511 Interpretive Statements Sinus rhythm Atrial premature complexes Poor R wave progression Prolonged QT interval Baseline wander in lead(s) V1 Compared to ECG 08/08/2017 13:08:29 Atrial premature complex(es) now present inferior Q waves are no longer present Electronically Signed On 09-08-2017 17:09:25 CDT by Alexis Torres [email or web address] <ELECTRONICALLY SIGNED> By: Alexis Torres MD, [facility] 09/08/17 1709 1508 1508 Alexis Torres MD, [facility] /EPI
[~2017-09-08 14:28] MED LIST changes: +ATIVAN0.5 MG PO
[2017-09-08 15:19] LABS: ABSOLUTE NEUTROPHILS 2.9 thou/uL (1.4-8.2); BASOPHILS 0.7 % (0.0-2.0); EOSINOPHILS 3.2 % (0.0-3.0); HEMATOCRIT 29.9 % (37.0-47.0); HEMOGLOBIN 9.9 gm/dL (12.0-15.0); LYMPHOCYTES 20.9 % (24.0-44.0); MCH 31.8 pg (26.0-34.0); MCHC 33.2 g/dL (28.0-37.0); MCV 95.8 fL (80.0-100.0); MONOCYTES 3.5 % (1.0-8.0); PLATELET COUNT 133 thou/uL (150-400); POLYS 71.7 % (36.0-66.0); RBC 3.12 mil/uL (4.20-5.00); RDW 19.6 % (10.5-14.5); WBC 4.1 thou/uL (4.0-11.0)
[2017-09-08 15:28] LABS: ANION GAP 3 mmol/L (7-16); BUN 18 mg/dL (7-18); CALCIUM 7.1 mg/dL (8.5-10.1); CHLORIDE 100 mmol/L (98-107); CO2 33 mmol/L (21-32); CREATININE 1.3 mg/dL (0.6-1.0); GLUCOSE 97 mg/dL (74-106); POTASSIUM 5.1 mmol/L (3.5-5.1); SODIUM 136 mmol/L (136-145)
[2017-09-08] MEDS ORDERED: LASIX 80 MG TAB80 MG PO ×2 (15:30→16:08)
[2017-09-08] MEDS ORDERED: POTASSIUM20 PO (15:30)
[2017-09-08 15:34] LABS: TROPONIN-I < 0.04 ng/mL (<0.06)
[2017-09-08 15:39] LABS: ANISOCYTOSIS 1+
[2017-09-08 16:38] VITALS: BP 120/86
== END 2017-09-08 16:39 | disposition home or self-care (01) ==
LOC: ER 14:28
PROVIDERS: Emergency Medicine
DX: I11.0 Hypertensive heart disease with heart failure (principal); I50.9 Heart failure, unspecified; Z96.642 Presence of left artificial hip joint; I12.9 Hypertensive chronic kidney disease with stage 1 through stage 4 chronic kidney disease, or unspecified chronic kidney disease; N18.3 Chronic kidney disease, stage 3 (moderate); Z90.49 Acquired absence of other specified parts of digestive tract; Z88.1 Allergy status to other antibiotic agents; Z88.5 Allergy status to narcotic agent; Z88.0 Allergy status to penicillin

== ENCOUNTER 2017-09-15 11:06 | Emergency (ER) | payer OTHER ==
[~2017-09-15] VITALS: Ht 165.1 cm; Wt 78.9 kg
[~2017-09-15 11:06] MED LIST changes: +LASIX 80 MG TAB80 MG PO; +POTASSIUM20 PO
[2017-09-15 13:00] LABS: HEMATOCRIT 28.8 % (37.0-47.0); HEMOGLOBIN 9.5 gm/dL (12.0-15.0); MCH 31.6 pg (26.0-34.0); MCHC 32.9 g/dL (28.0-37.0); MCV 95.9 fL (80.0-100.0); RDW 19.4 % (10.5-14.5)
[2017-09-15 13:08] LABS: CALCIUM 7.2 mg/dL (8.5-10.1); CREATININE 1.5 mg/dL (0.6-1.0); POTASSIUM 3.6 mmol/L (3.5-5.1)
[2017-09-15 14:15] VITALS: BP 125/87
== END 2017-09-15 14:46 | disposition home or self-care (01) ==
LOC: ER 11:06
PROVIDERS: Emergency Medicine
DX: S00.83XA Contusion of other part of head, initial encounter (principal); M19.90 Unspecified osteoarthritis, unspecified site; I13.0 Hypertensive heart and chronic kidney disease with heart failure and stage 1 through stage 4 chronic kidney disease, or unspecified chronic kidney disease; N18.3 Chronic kidney disease, stage 3 (moderate); I50.9 Heart failure, unspecified; Z96.652 Presence of left artificial knee joint; Z85.850 Personal history of malignant neoplasm of thyroid; Z88.6 Allergy status to analgesic agent; Z88.1 Allergy status to other antibiotic agents; Z88.8 Allergy status to other drugs, medicaments and biological substances; Z88.0 Allergy status to penicillin; Z88.5 Allergy status to narcotic agent; Z91.018 Allergy to other foods; Z88.4 Allergy status to anesthetic agent; W01.198A Fall on same level from slipping, tripping and stumbling with subsequent striking against other object, initial encounter; Y93.89 Activity, other specified; Y92.89 Other specified places as the place of occurrence of the external cause; Y99.8 Other external cause status